=== PATIENT | male | born 1960 | race Asian ===

== ENCOUNTER 2025-07-08 17:11 | Inpatient (IN) | payer MEDICAID ==
[~2025-07-08] VITALS: Ht 165.1 cm; Wt 59.1 kg
[2025-07-08 17:13] VITALS: O2SAT 100
[2025-07-08] MEDS: SODIUM CHLORIDE 0.9% (SEPSIS BOLUS) IV ONE (17:54)
[2025-07-08 18:00] LABS: HEMATOCRIT. 37.0 % (42.0-52.0); HEMOGLOBIN. 12.0 g/dL (14.0-18.0); MEAN PLATELET VOLUME 9.8 fl (7.4-10.4); PLATELET 178 x1000/uL (130-400); RED BLOOD CELL COUNT 4.01 mill/uL (4.7-6.1); RED CELL DISTRIBUTION WIDTH 14.0 % (11.6-14.6)
[2025-07-08 18:21] LABS: CREATININE 1.0 mg/dL (0.6-1.3); UREA NITROGEN BLOOD 18 mg/dL (9-23)
[2025-07-08] MEDS: PIPERACILLIN/TAZO 3.375G/50ML 50 ML IV ONE (18:21)
[2025-07-08 18:22] LABS: TROPONIN I HIGH SENSITIVITY 9 ng/L (3.0-53)
[2025-07-08 18:23] LABS: ASPARTATE AMINOTRANSFERASE 712 IU/L (<34); BILIRUBIN DIRECT 0.4 mg/dL (<=3.0); BILIRUBIN TOTAL 1.1 mg/dL (0.1-1.0); PROTEIN TOTAL 7.5 g/dL (6.0-8.3)
[2025-07-08] MEDS: ACETAMINOPHEN 500MG TABLET PO ONE (18:24)
[2025-07-08 18:44] LABS: BAND% 4.0 % (1.0-6.0); LYMPHOCYTES % MANUAL 4.0 % (20.0-50.0); MONOCYTES % MANUAL 6.0 % (2.0-8.0); NEUTROPHILS % MANUAL 86.0 % (45.0-75.0); PLATELET ESTIMATE NORMAL
[2025-07-08] MEDS: VANCOMYCIN 1G PREMIX 200 ML IV ONE (18:58)
[2025-07-08 19:10] LABS: TROPONIN I HIGH SENSITIVITY 10 ng/L (3.0-53)
[2025-07-08 19:49] LABS: CLARITY URINE CLOUDY (CLEAR); GLUCOSE URINE 3+ (NEGATIVE); KETONES URINE 1+ (NEGATIVE); LEUKOCYTE ESTERASE URINE 1+ (NEGATIVE); NITRITE URINE NEGATIVE (NEGATIVE); OCCULT BLOOD URINE 1+ (NEGATIVE); PH URINE 5.5 (4.5-8.0); PROTEIN URINE 1+ (NEGATIVE); SPECIFIC GRAVITY URINE 1.024 (1.005-1.030); UROBILINOGEN URINE 0.2 E.U./dL (0.2-1.0)
[2025-07-08 20:16] LABS: COLOR URINE STRAW (YELLOW)
[2025-07-08 20:18] LABS: WBC URINE 50-100 /hpf (0-2)
[2025-07-08 20:19] LABS: BACTERIA URINE TRACE; YEAST URINE 1+
[2025-07-08 20:22] LABS: RBC URINE NONE SEEN /hpf (0-2)
[2025-07-08 20:49] LABS: INR 1.2
[2025-07-08] MEDS ORDERED: GUAIFENESIN 200MG/10ML SUGAR FREE UDC PO PRN (21:15)
[2025-07-08] MEDS ORDERED: DOCUSATE SODIUM 100MG CAPSULE PO PRN (21:15)
[2025-07-08] MEDS ORDERED: ACETAMINOPHEN 650MG/20.3ML UDC GT PRN (21:15)
[2025-07-08] MEDS ORDERED: ONDANSETRON HCL 4MG/2ML INJ IV PRN (21:15)
[2025-07-08] MEDS ORDERED: IPRATROPIUM/ALBUTEROL 0.5-3(2.5)MG/3ML NEB HHN PRN (21:15)
[2025-07-08] MEDS ORDERED: ACETAMINOPHEN 650MG SUPP PR PRN (21:15)
[2025-07-08 22:48] VITALS: BP 121/55; PULSE 96; RESP 18; TEMP 35.584
[2025-07-08] MEDS: ASPIRIN 81MG TABLET PO SCH (23:14)
[2025-07-08] MEDS: PANTOPRAZOLE SODIUM 40 MG/VIAL IV SCH (23:14)
[2025-07-09] VITALS: BP 146/89; PULSE 114; RESP 18; TEMP 37.6; O2SAT 98
[2025-07-09] MEDS ORDERED: DEXTROSE 50% WATER 50ML SYRINGE IV PRN ×2 (00:15)
[2025-07-09] MEDS: SODIUM CHLORIDE 0.9% 1,000 ML IV SCH (00:15)
[2025-07-09] MEDS ORDERED: CEFTRIAXONE 1,000 MG in DEXT 5% WATER 100 ML IV SCH (00:15)
[2025-07-09] MEDS: ASPIRIN 81MG TABLET PO SCH (00:15)
[2025-07-09] MEDS: CEFTRIAXONE 1GM/50ML 50ML IV SCH (01:48)
[2025-07-09] MEDS: TAMSULOSIN HCL 0.4MG SR CAPSULE PO NR (01:49)
[2025-07-09 02:22] LABS: LDL CHOLESTEROL 83 mg/dL (5-100); TRIGLYCERIDE 56 mg/dL (0-150)
[2025-07-09 02:23] LABS: CREATINE KINASE MB FRACTION < 0.5 ng/mL (0.5-3.6); TROPONIN I HIGH SENSITIVITY 11 ng/L (3.0-53)
[2025-07-09] MEDS: ACETAMINOPHEN 650MG/20.3ML UDC PO PRN (02:23)
[2025-07-09] MEDS: DILTIAZEM HCL 30MG TABLET PO NR (02:23)
[2025-07-09 03:40] LABS: *AMPHETAMINES SCREEN URINE NEGATIVE (NEGATIVE); *BARBITURATES SCREEN URINE NEGATIVE (NEGATIVE); *BENZODIAZEPINES SCREEN URINE NEGATIVE (NEGATIVE); *COCAINE SCREEN URINE NEGATIVE (NEGATIVE); METHADONE URINE SCREEN NEGATIVE (NEGATIVE); OPIATES URINE SCREEN NEGATIVE (NEGATIVE); PHENCYCLIDINE URINE SCREEN NEGATIVE (NEGATIVE)
[2025-07-09 03:41] LABS: CANNABINOID URINE SCREEN NEGATIVE (NEGATIVE); ECSTASY MDMA SCREEN URINE NEGATIVE (NEGATIVE)
[2025-07-09 04:00] VITALS: BP 125/73; PULSE 112; RESP 18; TEMP 37.3; O2SAT 96
[2025-07-09] MEDS ORDERED: ACETAMINOPHEN 650MG/20.3ML UDC PO PRN (05:15)
[2025-07-09] MEDS ORDERED: GABA-1180 PO (06:16)
[2025-07-09] MEDS ORDERED: GLIP5TAB22 MT (06:16)
[2025-07-09] MEDS ORDERED: LEVO50TA8 PO (06:16)
[2025-07-09] MEDS ORDERED: APIX5TAB PO (06:16)
[2025-07-09] MEDS ORDERED: CHOL100046 (06:16)
[2025-07-09] MEDS ORDERED: METF-1150 PO (06:16)
[2025-07-09] MEDS ORDERED: FURO40TA5 PO (06:16)
[2025-07-09] MEDS ORDERED: TAMS-54 PO (06:16)
[2025-07-09] MEDS ORDERED: EMPA10TA PO (06:16)
[2025-07-09] MEDS ORDERED: ASPI-1497 PO (06:16)
[2025-07-09 07:33] LABS: CREATININE 0.7 mg/dL (0.6-1.3)
[2025-07-09 07:34] LABS: UREA NITROGEN BLOOD 15 mg/dL (9-23)
[2025-07-09 07:35] LABS: ASPARTATE AMINOTRANSFERASE > 1000 IU/L (<34)
[2025-07-09 07:36] LABS: BILIRUBIN DIRECT 0.7 mg/dL (<=3.0); BILIRUBIN TOTAL 1.6 mg/dL (0.1-1.0); PROTEIN TOTAL 6.6 g/dL (6.0-8.3); T4 FREE 1.55 ng/dL (0.89-1.76)
[2025-07-09 07:49] LABS: BASOPHILS % 0.5 % (0.0-2.0); EOSINOPHILS % 0.1 % (0.0-5.0); HEMATOCRIT. 34.9 % (42.0-52.0); HEMOGLOBIN. 11.4 g/dL (14.0-18.0); LYMPHOCYTES % 7.6 % (20.0-50.0); MEAN PLATELET VOLUME 9.5 fl (7.4-10.4); MONOCYTES % 3.2 % (2.0-8.0); NEUTROPHILS % 88.6 % (40.0-76.0); PLATELET 138 x1000/uL (130-400); RED BLOOD CELL COUNT 3.77 mill/uL (4.7-6.1); RED CELL DISTRIBUTION WIDTH 13.8 % (11.6-14.6)
[2025-07-09 08:10] LABS: HEPATITIS C AB NON REACTIVE (Neg) (Negative)
[2025-07-09 08:12] VITALS: BP 116/70; PULSE 116; RESP 20; TEMP 36.8; O2SAT 96
[2025-07-09] MEDS: INSULIN LISPRO 100 UNITS/ML SUBCUT SCH (08:20)
[2025-07-09] MEDS: ENOXAPARIN 40MG/0.4ML SYR SUBCUT SCH (08:46)
[2025-07-09] MEDS ORDERED: BLOOD SUGAR DIAGNOSTIC STRIP TEST SCH ×2 (09:00)
[2025-07-09 11:48] VITALS: BP 124/81; PULSE 104; RESP 19; TEMP 36.6; O2SAT 100
[2025-07-09] MEDS: APIXABAN 5 MG TABLET PO SCH (12:01)
[2025-07-09] MEDS: BLOOD SUGAR DIAGNOSTIC STRIP TEST SCH (12:02)
[2025-07-09 15:58] VITALS: BP 132/74; PULSE 113; RESP 19; TEMP 36.7; O2SAT 94
[2025-07-09] MEDS: NITROGLYCERIN 0.4MG TABLET SL SL PRN (16:00)
[2025-07-09 18:33] LABS: TROPONIN I HIGH SENSITIVITY 16 ng/L (3.0-53)
[2025-07-09 19:12] LABS: HEPATITIS A AB IGM NEGATIVE (Negative)
[2025-07-09 19:13] LABS: HEPATITIS B CORE AB IGM NEGATIVE (Negative); HEPATITIS C AB NON REACTIVE (Neg) (Negative)
[2025-07-09] MEDS: FERROUS SULFATE 325MG TABLET PO SCH (19:44)
[2025-07-09 20:00] VITALS: BP 145/98; PULSE 124; RESP 20; TEMP 36.7; O2SAT 98
[2025-07-09] MEDS: METOPROLOL TARTRATE 25MG TABLET PO SCH (20:53)
[2025-07-09] MEDS ORDERED: ATORVASTATIN CALCIUM 40MG TABLET PO SCH (21:00)
[2025-07-09 22:40] LABS: TROPONIN I HIGH SENSITIVITY 13 ng/L (3.0-53)
[2025-07-10] VITALS: BP 121/73; PULSE 100; RESP 18; TEMP 37.1; O2SAT 99
[2025-07-10] MEDS: CEFTRIAXONE 1GM/50ML 50 ML IV SCH (01:35)
[2025-07-10 04:00] VITALS: BP 123/74; PULSE 111; RESP 20; TEMP 36.6; O2SAT 98
[2025-07-10 06:28] LABS: CREATININE 0.7 mg/dL (0.6-1.3); TRIGLYCERIDE 95 mg/dL (0-150); UREA NITROGEN BLOOD 12 mg/dL (9-23)
[2025-07-10 06:29] LABS: LDL CHOLESTEROL 64 mg/dL (5-100)
[2025-07-10 06:30] LABS: ASPARTATE AMINOTRANSFERASE > 1000 IU/L (<34); BILIRUBIN DIRECT 0.6 mg/dL (<=3.0); BILIRUBIN TOTAL 1.3 mg/dL (0.1-1.0); PHOSPHORUS 2.2 mg/dL (2.5-4.9); PROTEIN TOTAL 6.4 g/dL (6.0-8.3)
[2025-07-10 06:31] LABS: BASOPHILS % 0.9 % (0.0-2.0); EOSINOPHILS % 0.3 % (0.0-5.0); HEMATOCRIT. 37.7 % (42.0-52.0); HEMOGLOBIN. 12.3 g/dL (14.0-18.0); LYMPHOCYTES % 17.8 % (20.0-50.0); MEAN PLATELET VOLUME 9.8 fl (7.4-10.4); MONOCYTES % 4.7 % (2.0-8.0); NEUTROPHILS % 76.3 % (40.0-76.0); PLATELET 127 x1000/uL (130-400); RED BLOOD CELL COUNT 4.11 mill/uL (4.7-6.1); RED CELL DISTRIBUTION WIDTH 13.7 % (11.6-14.6)
[2025-07-10 08:00] VITALS: BP 121/66; PULSE 92; RESP 16; TEMP 36.2; O2SAT 100
[2025-07-10] MEDS: THIAMINE HCL 100MG TABLET PO SCH (08:33)
[2025-07-10] MEDS: MAGNESIUM 2 G PREMIX 50 ML IV SCH (08:33)
[2025-07-10 11:44] VITALS: BP 100/58; PULSE 108; RESP 16; TEMP 36.3; O2SAT 98
[2025-07-10] MEDS: SODIUM PHOSPHATE 20 MMOL in DEXT 5% WATER 243.3333 ML IV ONE (15:12)
[2025-07-10 16:00] VITALS: BP 92/62; PULSE 88; RESP 17; TEMP 36.2; O2SAT 99
[2025-07-10 20:00] VITALS: BP 94/49; PULSE 76; RESP 20; TEMP 36.6; O2SAT 100
[2025-07-10] MEDS: METOPROLOL TARTRATE 25MG TABLET PO SCH (21:00)
[2025-07-10] MEDS: MUPIROCIN 2% OINT 22GM NS SCH (21:00)
[2025-07-11] VITALS: BP 93/52; PULSE 70; RESP 18; TEMP 36.4; O2SAT 99
[2025-07-11] MEDS: VANCOMYCIN 1.25GM/250ML IV SCH (00:09)
[2025-07-11 04:00] VITALS: BP 100/61; PULSE 87; RESP 18; TEMP 36.8; O2SAT 98
[2025-07-11 08:08] VITALS: BP 104/69; PULSE 81; RESP 19; TEMP 36.2; O2SAT 99
[2025-07-11 09:19] LABS: BASOPHILS % 0.5 % (0.0-2.0); EOSINOPHILS % 1.2 % (0.0-5.0); HEMATOCRIT. 33.6 % (42.0-52.0); HEMOGLOBIN. 10.7 g/dL (14.0-18.0); LYMPHOCYTES % 22.1 % (20.0-50.0); MEAN PLATELET VOLUME 9.6 fl (7.4-10.4); MONOCYTES % 7.7 % (2.0-8.0); NEUTROPHILS % 68.5 % (40.0-76.0); PLATELET 104 x1000/uL (130-400); RED BLOOD CELL COUNT 3.59 mill/uL (4.7-6.1); RED CELL DISTRIBUTION WIDTH 14.1 % (11.6-14.6)
[2025-07-11 09:26] LABS: INR 1.3
[2025-07-11] MEDS: VANCOMYCIN 750MG/150ML (BAXTER) IV SCH (09:31)
[2025-07-11 09:38] LABS: CREATININE 0.5 mg/dL (0.6-1.3); UREA NITROGEN BLOOD 9 mg/dL (9-23)
[2025-07-11 09:40] LABS: ASPARTATE AMINOTRANSFERASE 740 IU/L (<34); BILIRUBIN TOTAL 0.6 mg/dL (0.1-1.0)
[2025-07-11 09:57] LABS: PROTEIN TOTAL 4.3 g/dL (6.0-8.3)
[2025-07-11] MEDS: CALCIUM GLUCONATE 1GM PREMIX 50 ML IV SCH (11:30)
[2025-07-11] MEDS: POTASSIUM CHLORIDE 20MEQ/PACKET PO SCH (11:30)
[2025-07-11 11:36] VITALS: BP 109/60; PULSE 91; RESP 18; TEMP 36.2; O2SAT 98
[2025-07-11 15:38] VITALS: BP 115/70; PULSE 90; RESP 18; TEMP 36.2; O2SAT 99
[2025-07-11 20:00] VITALS: BP 108/70; PULSE 98; RESP 19; TEMP 36.3; O2SAT 97
[2025-07-12 00:14] VITALS: BP 107/63; PULSE 92; RESP 18; TEMP 36.9; O2SAT 98
[2025-07-12 04:18] VITALS: BP 108/66; PULSE 101; RESP 18; TEMP 36.4; O2SAT 98
[2025-07-12] MEDS: POTASSIUM CHLORIDE 20MEQ TABLET SR PO NR (05:39)
[2025-07-12 06:56] LABS: BASOPHILS % 0.5 % (0.0-2.0); EOSINOPHILS % 1.2 % (0.0-5.0); HEMATOCRIT. 30.8 % (42.0-52.0); HEMOGLOBIN. 9.9 g/dL (14.0-18.0); LYMPHOCYTES % 22.7 % (20.0-50.0); MEAN PLATELET VOLUME 9.5 fl (7.4-10.4); MONOCYTES % 10.1 % (2.0-8.0); NEUTROPHILS % 65.5 % (40.0-76.0); PLATELET 104 x1000/uL (130-400); RED BLOOD CELL COUNT 3.29 mill/uL (4.7-6.1); RED CELL DISTRIBUTION WIDTH 14.3 % (11.6-14.6)
[2025-07-12 07:11] LABS: CREATININE 0.4 mg/dL (0.6-1.3); UREA NITROGEN BLOOD 7 mg/dL (9-23)
[2025-07-12 07:13] LABS: ASPARTATE AMINOTRANSFERASE 284 IU/L (<34); BILIRUBIN TOTAL 0.5 mg/dL (0.1-1.0); PROTEIN TOTAL 3.7 g/dL (6.0-8.3)
[2025-07-12 08:00] VITALS: BP 90/55; PULSE 104; RESP 20; TEMP 36.3; O2SAT 98
[2025-07-12 12:00] VITALS: BP 101/62; PULSE 98; RESP 18; TEMP 36.4; O2SAT 99
[2025-07-12 16:00] VITALS: BP 108/66; PULSE 102; RESP 20; O2SAT 98
[2025-07-12 20:00] VITALS: BP 110/68; PULSE 99; RESP 18; TEMP 36.5; O2SAT 99
[2025-07-13] VITALS: BP 132/75; PULSE 88; RESP 18; TEMP 36.4; O2SAT 100
[2025-07-13 04:00] VITALS: RESP 18
[2025-07-13 08:00] VITALS: BP 104/57; PULSE 67; RESP 18; TEMP 36.5; O2SAT 99
[2025-07-13] MEDS ORDERED: IOHEXOL-350 100 ML BOTTLE ONE (10:40)
[2025-07-13] MEDS ORDERED: METO25TA6 PO (10:53)
[2025-07-13] MEDS ORDERED: THIA100T72 PO (10:53)
[2025-07-13] MEDS ORDERED: FERR-63 PO (10:53)
[2025-07-13 12:00] VITALS: BP 107/68; PULSE 94; RESP 19; TEMP 36.6; O2SAT 99
[2025-07-13 12:16] VITALS: BP 104/57; PULSE 67; RESP 18; TEMP 97.7
== END 2025-07-13 13:55 | disposition home or self-care (01) | DRG 720 ==
LOC: ER 17:11 → EDBEDREQ 20:39 → EDBEDREQTM 20:39 → EDBEDREQ 20:40 → ENRESERV 21:45 → 7WST 23:00
PROVIDERS: ADMIT Internal Medicine; ATTEND Internal Medicine
DX: A41.9 Sepsis, unspecified organism (principal); R57.9 Shock, unspecified; J96.01 Acute respiratory failure with hypoxia; R17 Unspecified jaundice; E11.52 Type 2 diabetes mellitus with diabetic peripheral angiopathy with gangrene; Z59.01 Sheltered homelessness; B35.1 Tinea unguium; I48.91 Unspecified atrial fibrillation; Z79.01 Long term (current) use of anticoagulants; D64.9 Anemia, unspecified; I10 Essential (primary) hypertension; J44.9 Chronic obstructive pulmonary disease, unspecified; E11.65 Type 2 diabetes mellitus with hyperglycemia; E87.5 Hyperkalemia; B37.49 Other urogenital candidiasis; K40.90 Unilateral inguinal hernia, without obstruction or gangrene, not specified as recurrent; N40.0 Benign prostatic hyperplasia without lower urinary tract symptoms; E78.5 Hyperlipidemia, unspecified; I25.10 Atherosclerotic heart disease of native coronary artery without angina pectoris; S60.425A Blister (nonthermal) of left ring finger, initial encounter; K57.30 Diverticulosis of large intestine without perforation or abscess without bleeding; K59.00 Constipation, unspecified; Z79.84 Long term (current) use of oral hypoglycemic drugs; Z86.73 Personal history of transient ischemic attack (TIA), and cerebral infarction without residual deficits; Z87.891 Personal history of nicotine dependence; Z89.431 Acquired absence of right foot; Z95.1 Presence of aortocoronary bypass graft; X58.XXXA Exposure to other specified factors, initial encounter; Y93.89 Activity, other specified; Y92.89 Other specified places as the place of occurrence of the external cause; Y99.8 Other external cause status
CPT/HCPCS: 36415; 71045; 71275; 74176; 76700; 80048; 80053; 80061; 80076; 80202; 80305; 81003; 82330; 82550; 82553; 82962; 83036; 83540; 83550; 83605; 83735; 83880; 84100; 84145; 84439; 84443; 84484; 85025; 85379; 86705; 86709; 87340; 93005; 93306; 93970; 96365; 99291; J0612; J0696; J1650; J1815; J2470; J2543; J3373; J3475; J3490; J7030; J7060; Q9967